=== PATIENT | female | born 1935 | race Caucasian/White ===

== ENCOUNTER → 2016-09-05 08:34 | Outpatient (CLI) | payer MEDICARE, BC | END | disposition home or self-care (01) | LOC: D.MRI 08:34 | DX: M54.12 Radiculopathy, cervical region (principal) ==

== ENCOUNTER → 2016-10-18 08:08 | Outpatient (CLI) | payer MEDICARE, BC ==
--- NOTE | 2016-10-22 06:59 | EMG ---
PATIENT:LANDRY LYNN DATE OF SERVICE: 10/18/16 MEDICAL RECORD: [id number] DATE OF : 37 LOCATION: [facility] ADMISSION DATE: REFERRING PHYSICIAN: KAYY ILN MD INTERPRETING PHYSICIAN: TERRELL ALFARO MD DATE OF SERVICE: 10/18/2016 Electromyographic Report REFERRED BY: Dr. Lin as an outpatient. ELECTROMYOGRAPHIC DATA: Electromyographic examination is limited to the right upper extremity. In the right upper extremity, right median motor stimulation elicits a compound motor action potential with a distal latency of 4.0 milliseconds, peak amplitude of 2 millivolts and calculated conduction velocity of 40 meters per second. Right ulnar motor stimulation elicits a compound motor action potential with a distal latency of 3.7 milliseconds, peak amplitude of 5 millivolts, and calculated conduction velocity of 59 meters per second. Right ulnar motor stimulation across the elbow fails to elicit evidence of conduction block at this level. Antidromic right median sensory stimulation elicits a response with a distal latency of 4.8 milliseconds, amplitude of 5 microvolts and calculated conduction velocity of 46 meters per second. Antidromic right ulnar sensory stimulation elicits a response with a distal latency of 4.1 milliseconds, amplitude of 5 microvolts and calculated conduction velocity of 56 meters per second. The right median F wave has a latency of 30 milliseconds. Needle electrode examination is limited to the right upper extremity as well. Muscles interrogated include the abductor pollicis brevis, first dorsal interosseous, abductor digiti minimi, pronator teres, biceps brachii, triceps and deltoid. There is no abnormality of insertional activity and no abnormal spontaneous activity is seen in all muscles interrogated. Motor unit potential morphology and the pattern of motor unit potential firing and recruitment is normal in all muscles sampled. 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 There is no electrical evidence of a superimposed cervical radiculopathy or other lesion of the lower motor neuron in the right upper extremity at this time. There is no evidence of active denervation. TRANSINT:[id number] Voice Confirmation ID: [id number] DOCUMENT ID: [id number] ELECTROMYGRAM/NERVE CONDUCTION [id number] LANDRY LYNN DONALD P MD at 0659 CC: [id number] DICTATION DATE: 10/18/16919 STORAGE RECEIPT POSTER: 10/19/16 0116 DEP CLI 10/18/16 [facility] [address] [id number]
== END | disposition home or self-care (01) ==
LOC: D.CN 08:08
DX: M54.12 Radiculopathy, cervical region (principal)

== ENCOUNTER 2017-02-13 06:01 | Day surgery (SDC) | payer MEDICARE, BC ==
[2017-02-11 08:54] LABS: BASOPHILS 0.9 % (0-2); EOSINOPHILS 2.9 % (0-7); HEMATOCRIT 41.7 % (36.0-48.0); HEMOGLOBIN 13.6 g/dL (12-16); IMMATURE GRANULOCYTES 0.2 % (0-5); LYMPHOCYTES 20.8 % (15-50); MCH 28.9 pg (26.0-34.0); MCHC 32.6 g/dL (31.0-37.0); MCV 88.5 fL (80.0-100.0); MEAN PLATELET VOLUME 10.1 fL (7.4-10.4); MONOCYTES 8.3 % (2-11); NEUTROPHILS 66.9 % (40-80); PLATELET COUNT 361 10x3/uL (130-400); RBC 4.71 10x6/uL (4.00-5.40); WBC 5.4 10x3/uL (4.8-10.8)
[2017-02-11 09:11] LABS: ANION GAP 13.4 mmol/L (8-16); CALCIUM 9.3 mg/dL (8.5-10.1); CARBON DIOXIDE 27.4 mmol/L (21.0-32.0); CREATININE - SERUM 0.8 mg/dL (0.6-1.3); POTASSIUM - SERUM 3.8 mmol/L (3.5-5.1)
[~2017-02-13] VITALS: Ht 157.5 cm; Wt 79.4 kg
[~2017-02-13 06:01] MED LIST: ASPIRIN EC81 M1 PO; CALCIUM 500 +1 EAC3 PO; MAGNESIUM GLUC550 MG PO; NORVASC5 MG PO; OMEPRAZOLE20 M1 PO; POTASSIUM99 M1 PO; STOOL SOFTENER100 M1 PO
[2017-02-13 14:01] VITALS: BP 150/84; Ht 157.5 cm; Wt 79.4 kg
[2017-02-13] MEDS ORDERED: HYDROCODONE-APA1 TAB PO (15:20)
--- NOTE | 2017-02-13 16:46 | NUR ---
1645--IV DC'D, PT UP TO DRESS AT THIS TIME. NADER YATES
--- NOTE | 2017-02-13 16:54 | NUR ---
165--DISCHARGE INSTRUCTIONS GIVEN, PT VERBALIZES UNDERSTANDING. PT OFF UNIT VIA NATALIA. NADER YATES
== END 2017-02-13 16:55 | disposition home or self-care (01) ==
LOC: D.OPS 06:01 → D.PAN 13:45 → D.OPS 13:45 → D.PAN 14:25 → D.OPS 14:25
PROVIDERS: Anesthesiology
DX: G56.01 Carpal tunnel syndrome, right upper limb (principal); Z01.810 Encounter for preprocedural cardiovascular examination; Z01.811 Encounter for preprocedural respiratory examination; Z01.812 Encounter for preprocedural laboratory examination

== ENCOUNTER 2017-05-29 15:56 | Inpatient (IN) | payer MEDICARE, BC ==
[~2017-05-29] VITALS: Ht 157.5 cm; Wt 73.9 kg
[~2017-05-29 15:56] MED LIST changes: +HYDROCODONE-APA1 TAB PO
[2017-05-29 16:19] VITALS: BP 130/88; BMI 29.9
[2017-05-29 16:32] LABS: BASOPHILS 0.3 % (0-2); EOSINOPHILS 0.4 % (0-7); HEMATOCRIT 42.4 % (36.0-48.0); HEMOGLOBIN 13.8 g/dL (12-16); IMMATURE GRANULOCYTES 0.2 % (0-5); LYMPHOCYTES 11.1 % (15-50); MCHC 32.5 g/dL (31.0-37.0); MCV 89.1 fL (80.0-100.0); MEAN PLATELET VOLUME 10.5 fL (7.4-10.4); MONOCYTES 6.6 % (2-11); NEUTROPHILS 81.4 % (40-80); PLATELET COUNT 344 10x3/uL (130-400); RBC 4.76 10x6/uL (4.00-5.40); RDW 15.6 % (11.5-14.5); WBC 9.5 10x3/uL (4.8-10.8)
[2017-05-29 16:47] LABS: ALBUMIN 3.5 g/dL (3.4-5.0); ANION GAP 18.1 mmol/L (8-16); BILIRUBIN - TOTAL 6.49 mg/dL (0.2-1.3); CALCIUM 9.1 mg/dL (8.5-10.1); CARBON DIOXIDE 23.5 mmol/L (21.0-32.0); CREATININE - SERUM 0.8 mg/dL (0.6-1.3); POTASSIUM - SERUM 3.6 mmol/L (3.5-5.1)
--- NOTE | 2017-05-29 17:56 | NUR ---
IV SITED TO LEFT FOREARM X1 STICK USING ASEPTIC TECH,20G.
[2017-05-29 18:21] LABS: APTT 30.4 SECONDS (22.8-39.4); INR 0.96 (0.85-1.17); PROTIME 12.6 SECONDS (11.6-15.0)
[2017-05-29 21:20] VITALS: BP 144/87
[2017-05-30 00:56] VITALS: BP 146/71
--- NOTE | 2017-05-30 03:31 | NUR ---
ASSESSED AT THE BEGINNING OF THE SHIFT. PT IS ALERT AND ORIENTED, ABLE TO VERBALIZE NEEDS. SHE IS ABLE TO TURN AND REPOSITION HERSELF NEEDED AND GET UP TO THE BATHROOM AD SILVINO. SHE HAS TELEMETRY IN PLACE SHOWING 84 SINUS RHYTHM. SHE HAS NOT COMPLAINED OF PAIN DURING THE NIGHT AND SEEMS TO BE RESTING WELL. SHE IS KEEPING NPO FOR A ULTRA SOUND IN THE AM. THE BED IS LOW, RAILS UP X'S 2 WITH THE CALL LIGHT AT HAND.
[2017-05-30 04:52] VITALS: BP 141/74
[2017-05-30 06:31] LABS: BASOPHILS 0.5 % (0-2); EOSINOPHILS 1.4 % (0-7); HEMATOCRIT 37.5 % (36.0-48.0); HEMOGLOBIN 12.2 g/dL (12-16); IMMATURE GRANULOCYTES 0.3 % (0-5); MCHC 32.5 g/dL (31.0-37.0); MCV 89.1 fL (80.0-100.0); MEAN PLATELET VOLUME 10.9 fL (7.4-10.4); NEUTROPHILS 71.8 % (40-80); PLATELET COUNT 287 10x3/uL (130-400); RBC 4.21 10x6/uL (4.00-5.40)
[2017-05-30 06:49] LABS: WBC 5.9 10x3/uL (4.8-10.8)
[2017-05-30 06:51] LABS: ALBUMIN 2.7 g/dL (3.4-5.0); ALKALINE PHOSPHATASE 290 U/L (46-116); ALT (SGPT) 191 U/L (10-68); CALCIUM 8.4 mg/dL (8.5-10.1); CARBON DIOXIDE 21.6 mmol/L (21.0-32.0); CHLORIDE - SERUM 106 mmol/L (98-107); CREATININE - SERUM 0.6 mg/dL (0.6-1.3); GLUCOSE 78 mg/dL (74-106); POTASSIUM - SERUM 3.6 mmol/L (3.5-5.1); PROTEIN - SERUM 5.6 g/dL (6.4-8.2); SODIUM 138 mmol/L (136-145); eGFR NON AFRICAN AMERICAN > 90 mL/min (90-120)
[2017-05-30 06:52] LABS: CALC OSMOLALITY 276 mosm/kg (275-300); UREA NITROGEN 19 mg/dL (7-18)
--- NOTE | 2017-05-30 07:05 | NUR ---
REPORT RECEIVED, ASSUMED CARE OF PT. RESTING, EASILY AROUSED. L FOREARM IV INFUSING FLUIDS ORDERED, DRSG C/D/I. ASSISTED TO THE RESTROOM AT THIS TIME WITH MINIMAL ASSISTANCE. BED IN LOWEST POSITION, SIDE RAILS UP X 2, CALL LIGHT WITHIN REACH.
[2017-05-30 08:36] VITALS: BP 159/82
[2017-05-30 12:14] VITALS: BP 128/68
--- NOTE | 2017-05-30 12:45 | NUR ---
LATEX ALLERGY SCREENING TOOL COMPLETE, CONSENTS FOR PROCEDURE, BLOOD TRANSFUSION AND ANESTHESIA SIGNED AND WITNESSED.
[2017-05-30 13:36] VITALS: Ht 157.5 cm; Wt 73.9 kg
--- NOTE | 2017-05-30 14:36 | NUR ---
PT LEFT FLOOR WITH GI FOR PROCEDURE
--- NOTE | 2017-05-30 17:11 | NUR ---
PT RECEIVED FROM MONICA YATES. THE PATIENT HAD ALREADY BEEN IN RECOVERY SINCE 1645. THE PATIENT IS STABLE AND HAS NO COMPLAINTS.
--- NOTE | 2017-05-30 17:17 | NUR ---
1645-fluro time 2 minutes and 30 seconds. 40cc contrast used.
[2017-05-30 17:21] VITALS: BP 145/68
--- NOTE | 2017-05-30 17:26 | NUR ---
RETURNED FROM PROCEDURE. A/O X3. DENIES NEEDS.
[2017-05-30 20:00] VITALS: BP 131/64
[2017-05-31] VITALS: BP 125/70
--- NOTE | 2017-05-31 03:16 | NUR ---
ASSESSED AT THE BEGINNING OF THE SHIFT. PT IS ALERT AND ORIENTED, ABLE TO VERBALIZE NEEDS. SHE IS ABLE TO TURN AND REPOSITION HERSELF AND IS GETTING UP TO THE BATHROOM AD SILVINO. EVERY TIME SHE IS ASKED ABOUT PAIN SHE DENIES HAVING ANY. SHE IS WEARING TELEMETRY AND IT SHOWS SINUS RHYTHM IN THE 70'S. SHE IS THINKING SHE WILL GET TO GO HOME TOMORROW. THE BED IS LOW, RAILS UP X'S 2 WITH THE CALL LIGHT AT HAND.
[2017-05-31 04:00] VITALS: BP 130/61
[2017-05-31 06:56] LABS: BASOPHILS 0.7 % (0-2); EOSINOPHILS 1.4 % (0-7); HEMATOCRIT 34.9 % (36.0-48.0); HEMOGLOBIN 11.4 g/dL (12-16); IMMATURE GRANULOCYTES 0.7 % (0-5); LYMPHOCYTES 16.3 % (15-50); MCH 29.1 pg (26.0-34.0); MCHC 32.7 g/dL (31.0-37.0); MEAN PLATELET VOLUME 10.3 fL (7.4-10.4); MONOCYTES 5.6 % (2-11); NEUTROPHILS 75.3 % (40-80); PLATELET COUNT 286 10x3/uL (130-400); RBC 3.92 10x6/uL (4.00-5.40); RDW 16.1 % (11.5-14.5); WBC 5.9 10x3/uL (4.8-10.8)
[2017-05-31 07:31] LABS: ALBUMIN 2.4 g/dL (3.4-5.0); ALKALINE PHOSPHATASE 273 U/L (46-116); ALT (SGPT) 132 U/L (10-68); BILIRUBIN - TOTAL 1.71 mg/dL (0.2-1.3); CALC OSMOLALITY 279 mosm/kg (275-300); CALCIUM 7.7 mg/dL (8.5-10.1); CARBON DIOXIDE 23.3 mmol/L (21.0-32.0); CHLORIDE - SERUM 109 mmol/L (98-107); CREATININE - SERUM 0.5 mg/dL (0.6-1.3); GLUCOSE 87 mg/dL (74-106); POTASSIUM - SERUM 3.5 mmol/L (3.5-5.1); PROTEIN - SERUM 5.2 g/dL (6.4-8.2); SODIUM 142 mmol/L (136-145); UREA NITROGEN 8 mg/dL (7-18); eGFR NON AFRICAN AMERICAN > 90 mL/min (90-120)
--- NOTE | 2017-05-31 08:15 | NUR ---
PATIENT IN BED WITH IV INTACT. NO COMPLAINTS AT THIS TIME. ASSESSMENT COMPLETE, VS STABLE. CALL LIGHTW ITHIN REACH.
[2017-05-31 10:10] VITALS: BP 118/62
[2017-05-31 13:39] VITALS: BP 116/68
--- NOTE | 2017-05-31 14:45 | NUR ---
PATIENT IV REMOVED AT THIS TIME. CATH TIP INTACT. PATIENT UP TO BS GETTING DRESSED. FAMILY AT SIDE.
--- NOTE | 2017-05-31 15:00 | NUR ---
PATIENT RECIEVED DC INSTRUCTIONS. VERBALIZED UNDERSTANDING. NO QUESTIONS AT THIS TIME. CALL LIGHT WITHIN REACH.
== END 2017-05-31 16:06 | disposition home or self-care (01) | DRG 446 ==
LOC: D.MS 15:56 → OBSVTIME 15:57 → D.MS 05-30 15:07
PROVIDERS: Internal Medicine Gastroenterology; ADMIT Family Medicine
PROC: 0FC98ZZ Extirpation of Matter from Common Bile Duct, Via Natural or Artificial Opening Endoscopic (ICD-10-PCS; 2017-05-30)
PROC: 0F798ZZ Dilation of Common Bile Duct, Via Natural or Artificial Opening Endoscopic (ICD-10-PCS; principal; 2017-05-30 14:49)
DX: K83.1 Obstruction of bile duct (principal); K21.9 Gastro-esophageal reflux disease without esophagitis; K44.9 Diaphragmatic hernia without obstruction or gangrene; I10 Essential (primary) hypertension; K59.00 Constipation, unspecified